=== PATIENT | female | born 1955 | race Caucasian/White ===

== ENCOUNTER 2022-04-29 20:41 | Emergency (ER) | payer MEDICARE ==
[~2022-04-29 20:41] MED LIST: Calcium Chloride 1 GM/10 ML Abboject SYRINGE ONE; EPINEPHrine 1 MG/10 ML Abboject SYRINGE ONE; Sodium Bicarb 50 MEQ/50 ML Abboject 8.4% SYRINGE ONE; Sodium Chloride 0.9% 1,000 ML BAG ONE
[2022-04-29 21:00] LABS: Lavender RECEIVED; Red RECEIVED
== END 2022-04-29 22:57 | disposition expired ==
LOC: MADERS 20:41
DX: I46.9 Cardiac arrest, cause unspecified (principal); I10 Essential (primary) hypertension; E11.9 Type 2 diabetes mellitus without complications
CPT/HCPCS: 92950; 96374; 96375; J0171; J7050